=== PATIENT | female | born 1985 ===

== ENCOUNTER 2021-03-06 13:43 | Emergency (ER) | payer OTHER ==
[~2021-03-06] VITALS: Ht 167.6 cm; Wt 80.3 kg
[2021-03-06] MEDS ORDERED: NORFLEX100MG PO (19:03)
== END 2021-03-06 20:13 | disposition home or self-care (01) ==
LOC: ER 13:43
DX: R00.2 Palpitations (principal); R00.0 Tachycardia, unspecified; E05.90 Thyrotoxicosis, unspecified without thyrotoxic crisis or storm; Z03.818 Encounter for observation for suspected exposure to other biological agents ruled out